=== PATIENT | male | born 1970 | race Two or more races ===

== ENCOUNTER 2024-12-23 08:34 | Day surgery (SDC) | payer BC ==
[2024-12-23] MEDS ORDERED: Midazolam 1 MG/ML 2 ML SDV ONE (09:29)
[2024-12-23] MEDS ORDERED: Propofol 200 MG/20 ML SDV ONE (09:29)
[2024-12-23] MEDS ORDERED: fentaNYL 100 MCG/2 ML SDV ONE (09:29)
[2024-12-23] MEDS: Lactated Ringers 1,000 ML IV SCH (09:44)
[2024-12-23 13:18] VITALS: BP 127/86; PULSE 59
== END 2024-12-23 14:15 | disposition home or self-care (01) ==
LOC: JP.SDS 08:34
PROVIDERS: ATTEND Family Medicine
DX: Z12.11 Encounter for screening for malignant neoplasm of colon (principal); D12.2 Benign neoplasm of ascending colon; D12.3 Benign neoplasm of transverse colon
CPT/HCPCS: 00811; 45380; J2250; J2704; J3010; J7120